=== PATIENT | female | born 1980 | race African-American/Black ===

== ENCOUNTER 2019-07-13 15:39 | Inpatient (IN) | payer OTHER ==
[~2019-07-13] VITALS: Ht 167.6 cm; Wt 93.4 kg
[2019-07-13] MEDS ORDERED: FUROSEMIDE 40 MG/4 ML VIAL IV ONE ×2 (16:30→19:30)
[2019-07-13] MEDS ORDERED: FUROSEMIDE 40 MG/4 ML VIAL ONE (16:30)
[2019-07-13] MEDS ORDERED: FURO40TA5 PO (17:03)
[2019-07-13] MEDS ORDERED: POTA20TA83 PO (17:03)
[2019-07-13 18:59] LABS: CALCIUM, SERUM 9.3 mg/dL (8.5-10.1); CARBON DIOXIDE 22 mmol/L (21-32); CHLORIDE 105 mmol/L (98-107); CREATININE 0.9 mg/dL (0.6-1.3); GLUCOSE 97 mg/dL (74-106); SODIUM SERUM 140 mmol/L (136-145); UREA NITROGEN, BLOOD 17 mg/dL (7-18)
[2019-07-13 19:00] LABS: BASOPHILS # (AUTO) 0.1 /CMM (0.0-0.2); BASOPHILS % (AUTO) 1.3 % (0.0-2.0); EOSINOPHILS % (AUTO) 1.8 % (0.0-6.0); HEMATOCRIT 39 % (33-45); HEMOGLOBIN 12.8 g/dL (11.5-14.8); LYMPHOCYTES # (AUTO) 1.4 /CMM (0.8-4.8); LYMPHOCYTES % (AUTO) 20.2 % (20.0-44.0); MEAN CORPUSCULAR HGB CONC 33 g/dl (31.0-36.0); MEAN CORPUSCULAR VOLUME 97 fL (82-100); MONOCYTES # (AUTO) 0.9 /CMM (0.1-1.30); MONOCYTES % (AUTO) 12.5 % (2.0-12.0); NEUTROPHILS # (AUTO) 4.6 /CMM (1.8-8.9); NEUTROPHILS % (AUTO) 64.2 % (43.0-81.0); PLATELET COUNT (AUTO) 258 /CMM (150-450); RED BLOOD CELL COUNT(AUTO) 4.02 MIL/uL (4.0-5.2); WHITE BLOOD COUNT (AUTO) 7.1 K/uL (4.3-11.0)
[2019-07-13 19:11] LABS: ALANINE AMINOTRANSFERASE 30 U/L (12-78); ALKALINE PHOSPHATASE 206 U/L (46-116); ASPARTATE AMINOTRANSFERASE 36 U/L (15-37); B-TYPE NATRIURETIC PEPTIDE 6514 PG/ML (0-125); BILIRUBIN,DIRECT 0.6 mg/dL (0.0-0.2); BILIRUBIN,TOTAL 1.4 mg/dL (0.2-1.0); TOTAL PROTEIN, SERUM 8.1 g/dL (6.4-8.2)
[2019-07-13] MEDS ORDERED: ALBUTEROL FS 2.5 MG/0.5 ML VIAL.NEB NEB PRN (19:30)
[2019-07-13] MEDS ORDERED: MAG HYDROX/AL HYDROX/SIMETH 30 ML UDC PO PRN (19:30)
[2019-07-13] MEDS ORDERED: HYDROCODONE/APAP 5/325MG 1 EACH TABLET PO PRN (19:30)
[2019-07-13] MEDS ORDERED: MAGNESIUM HYDROXIDE 30 ML UDC PO PRN (19:30)
[2019-07-13] MEDS ORDERED: ONDANSETRON HCL/PF 4 MG/2 ML VIAL IVP PRN (19:30)
[2019-07-13] MEDS ORDERED: Z GUARD REMEDY 2 OZ OINT TP PRN (19:30)
[2019-07-13 20:00] VITALS: BP 126/82
[2019-07-13] MEDS: ENOXAPARIN SODIUM 40 MG/0.4 ML DISP.SYRIN SQ SCH (20:29)
[2019-07-13 21:00] VITALS: BP 127/94
[2019-07-13 22:00] VITALS: BP 128/92
[2019-07-13 23:00] VITALS: BP 111/76
[2019-07-13 23:42] LABS: CALCIUM, SERUM 8.7 mg/dL (8.5-10.1); CREATININE 0.7 mg/dL (0.6-1.3); POTASSIUM 4.4 mmol/L (3.5-5.1)
[2019-07-14] VITALS (22 sets, daily range): BP systolic 95–147; BP diastolic 62–104
[2019-07-14 04:53] LABS: BASOPHILS # (AUTO) 0.1 /CMM (0.0-0.2); BASOPHILS % (AUTO) 0.8 % (0.0-2.0); EOSINOPHILS % (AUTO) 3.1 % (0.0-6.0); HEMATOCRIT 36 % (33-45); HEMOGLOBIN 11.6 g/dL (11.5-14.8); LYMPHOCYTES % (AUTO) 15.1 % (20.0-44.0); MEAN CORPUSCULAR HGB CONC 33 g/dl (31.0-36.0); MEAN CORPUSCULAR VOLUME 97 fL (82-100); MONOCYTES # (AUTO) 0.7 /CMM (0.1-1.30); MONOCYTES % (AUTO) 11.6 % (2.0-12.0); NEUTROPHILS # (AUTO) 4.4 /CMM (1.8-8.9); NEUTROPHILS % (AUTO) 69.4 % (43.0-81.0); PLATELET COUNT (AUTO) 308 /CMM (150-450); RED BLOOD CELL COUNT(AUTO) 3.67 MIL/uL (4.0-5.2); WHITE BLOOD COUNT (AUTO) 6.3 K/uL (4.3-11.0)
[2019-07-14 05:09] LABS: CALCIUM, SERUM 9.1 mg/dL (8.5-10.1); CREATININE 0.8 mg/dL (0.6-1.3); MAGNESIUM 1.8 mg/dL (1.8-2.4); PHOSPHORUS 4.5 mg/dL (2.5-4.9); POTASSIUM 3.7 mmol/L (3.5-5.1)
[2019-07-14 05:23] LABS: THYROID STIMULATING HORMONE 1.764 uIU/mL (0.358-3.74)
[2019-07-14] MEDS: POTASSIUM CHLORIDE 20 MEQ TAB.PRT.SR PO SCH ×3 (08:09→12:58)
[2019-07-14] MEDS: FUROSEMIDE 40 MG/4 ML VIAL IV SCH ×3 (08:09→16:31)
[2019-07-14] MEDS ORDERED: FUROSEMIDE 40 MG/4 ML VIAL IV SCH (09:00)
[2019-07-14] MEDS: MORPHINE SULFATE INJ 2 MG/ML DISP.SYRIN IV PRN ×2 (09:54→20:06)
[2019-07-14] MEDS: ENOXAPARIN SODIUM 40 MG/0.4 ML DISP.SYRIN SQ SCH (20:06)
[2019-07-15] VITALS: BP 116/71
[2019-07-15] MEDS: MORPHINE SULFATE INJ 2 MG/ML DISP.SYRIN IV PRN (01:04)
[2019-07-15 02:46] VITALS: BP 124/90
[2019-07-15 06:40] LABS: BASOPHILS % (AUTO) 0.6 % (0.0-2.0); HEMATOCRIT 35 % (33-45); HEMOGLOBIN 11.2 g/dL (11.5-14.8); LYMPHOCYTES % (AUTO) 14.6 % (20.0-44.0); MEAN CORPUSCULAR HGB CONC 32 g/dl (31.0-36.0); MEAN CORPUSCULAR VOLUME 96 fL (82-100); MONOCYTES # (AUTO) 0.7 /CMM (0.1-1.30); NEUTROPHILS # (AUTO) 4.8 /CMM (1.8-8.9); NEUTROPHILS % (AUTO) 71.8 % (43.0-81.0); PLATELET COUNT (AUTO) 292 /CMM (150-450); WHITE BLOOD COUNT (AUTO) 6.7 K/uL (4.3-11.0)
[2019-07-15 06:57] LABS: ALBUMIN 3.1 g/dL (3.4-5.0); BILIRUBIN,TOTAL 1.4 mg/dL (0.2-1.0); CREATININE 0.9 mg/dL (0.6-1.3); MAGNESIUM 1.7 mg/dL (1.8-2.4); PHOSPHORUS 4.3 mg/dL (2.5-4.9); POTASSIUM 3.6 mmol/L (3.5-5.1); TOTAL PROTEIN, SERUM 7.6 g/dL (6.4-8.2)
[2019-07-15] MEDS: Magnesium 1GM/D5W 100ML PREMIX 100 ML IV SCH ×2 (07:34→08:39)
[2019-07-15] MEDS: FUROSEMIDE 40 MG/4 ML VIAL IV SCH ×3 (07:34→15:30)
[2019-07-15] MEDS: POTASSIUM CHLORIDE 20 MEQ TAB.PRT.SR PO SCH ×3 (07:35→09:53)
[2019-07-15 08:00] VITALS: BP 125/71
[2019-07-15] MEDS ORDERED: Magnesium 1GM/D5W 100ML PREMIX 100 ML IV SCH (11:21)
[2019-07-15 16:00] VITALS: BP 128/82
[2019-07-15] MEDS ORDERED: FUROSEMIDE 40 MG/4 ML VIAL IV ONE (17:00)
[2019-07-15] MEDS: ENOXAPARIN SODIUM 40 MG/0.4 ML DISP.SYRIN SQ SCH (20:00)
[2019-07-15 20:46] VITALS: BP 128/82
[2019-07-16 06:28] LABS: BASOPHILS % (AUTO) 0.5 % (0.0-2.0); HEMATOCRIT 35 % (33-45); HEMOGLOBIN 11.7 g/dL (11.5-14.8); LYMPHOCYTES % (AUTO) 13.6 % (20.0-44.0); MEAN CORPUSCULAR HGB CONC 33 g/dl (31.0-36.0); MEAN CORPUSCULAR VOLUME 97 fL (82-100); MONOCYTES # (AUTO) 0.8 /CMM (0.1-1.30); MONOCYTES % (AUTO) 11.1 % (2.0-12.0); NEUTROPHILS # (AUTO) 5.1 /CMM (1.8-8.9); NEUTROPHILS % (AUTO) 71.8 % (43.0-81.0); PLATELET COUNT (AUTO) 299 /CMM (150-450); RED BLOOD CELL COUNT(AUTO) 3.67 MIL/uL (4.0-5.2); WHITE BLOOD COUNT (AUTO) 7.1 K/uL (4.3-11.0)
[2019-07-16 06:42] LABS: ALBUMIN 3.2 g/dL (3.4-5.0); BILIRUBIN,TOTAL 1.4 mg/dL (0.2-1.0); CALCIUM, SERUM 9.1 mg/dL (8.5-10.1); CREATININE 0.8 mg/dL (0.6-1.3); MAGNESIUM 1.9 mg/dL (1.8-2.4); PHOSPHORUS 3.7 mg/dL (2.5-4.9); POTASSIUM 3.7 mmol/L (3.5-5.1); TOTAL PROTEIN, SERUM 8.1 g/dL (6.4-8.2)
[2019-07-16 08:00] VITALS: BP 129/82
[2019-07-16] MEDS: ACETAMINOPHEN 325 MG TABLET PO PRN ×2 (08:39→18:58)
[2019-07-16] MEDS ORDERED: ALBUMIN 25% 12.5 GM/50 ML BOTTLE IV ONE (12:30)
[2019-07-16] MEDS ORDERED: ALBUMIN 25% 12.5 GM in PREMIX 1 EA IV ONE (13:00)
[2019-07-16 15:02] LABS: ABG BASE EXCESS 2.5 mmol/L; ABG PCO2 43.8 mmHg (35.0-45.0); ABG PH 7.415 (7.350-7.450); AaDO2 44.3 mmHg; COHb 0.5 % (0.5-1.5); MetHb 0.3 % (0.0-1.5); O2Hb 84.3 % (94.0-97.0); VENT MODE, BG ROOM AIR
[2019-07-16 16:00] VITALS: BP 110/68
[2019-07-16 20:00] VITALS: BP 114/76
[2019-07-16] MEDS: ENOXAPARIN SODIUM 40 MG/0.4 ML DISP.SYRIN SQ SCH (20:41)
[2019-07-17] VITALS: BP 105/82
[2019-07-17 04:00] VITALS: BP 108/70
[2019-07-17 07:32] LABS: BASOPHILS # (AUTO) 0.1 /CMM (0.0-0.2); BASOPHILS % (AUTO) 0.8 % (0.0-2.0); EOSINOPHILS % (AUTO) 2.8 % (0.0-6.0); HEMATOCRIT 37 % (33-45); HEMOGLOBIN 12.2 g/dL (11.5-14.8); LYMPHOCYTES # (AUTO) 1.1 /CMM (0.8-4.8); LYMPHOCYTES % (AUTO) 14.8 % (20.0-44.0); MEAN CORPUSCULAR HGB CONC 33 g/dl (31.0-36.0); MEAN CORPUSCULAR VOLUME 97 fL (82-100); MONOCYTES # (AUTO) 0.7 /CMM (0.1-1.30); MONOCYTES % (AUTO) 9.6 % (2.0-12.0); NEUTROPHILS # (AUTO) 5.3 /CMM (1.8-8.9); PLATELET COUNT (AUTO) 297 /CMM (150-450); RED BLOOD CELL COUNT(AUTO) 3.79 MIL/uL (4.0-5.2); WHITE BLOOD COUNT (AUTO) 7.3 K/uL (4.3-11.0)
[2019-07-17 08:00] VITALS: BP 122/76
[2019-07-17] MEDS: SPIRONOLACTONE 25 MG TABLET PO SCH (09:41)
[2019-07-17 09:44] LABS: CALCIUM, SERUM 8.5 mg/dL (8.5-10.1); CREATININE 0.9 mg/dL (0.6-1.3); MAGNESIUM 1.7 mg/dL (1.8-2.4); POTASSIUM 4.1 mmol/L (3.5-5.1)
[2019-07-17 16:00] VITALS: BP 105/60
[2019-07-17 20:00] VITALS: BP 109/76
[2019-07-17] MEDS: ENOXAPARIN SODIUM 40 MG/0.4 ML DISP.SYRIN SQ SCH (20:10)
[2019-07-17] MEDS: Magnesium 1GM/D5W 100ML PREMIX 100 ML IV SCH ×2 (20:11→21:29)
[2019-07-17 20:30] VITALS: BP 109/76
[2019-07-18 06:27] LABS: BASOPHILS % (AUTO) 0.8 % (0.0-2.0); EOSINOPHILS % (AUTO) 1.6 % (0.0-6.0); HEMATOCRIT 35 % (33-45); HEMOGLOBIN 11.5 g/dL (11.5-14.8); LYMPHOCYTES # (AUTO) 0.8 /CMM (0.8-4.8); LYMPHOCYTES % (AUTO) 13.5 % (20.0-44.0); MEAN CORPUSCULAR HGB CONC 33 g/dl (31.0-36.0); MEAN CORPUSCULAR VOLUME 97 fL (82-100); MONOCYTES # (AUTO) 0.5 /CMM (0.1-1.30); MONOCYTES % (AUTO) 8.8 % (2.0-12.0); NEUTROPHILS # (AUTO) 4.7 /CMM (1.8-8.9); NEUTROPHILS % (AUTO) 75.3 % (43.0-81.0); PLATELET COUNT (AUTO) 255 /CMM (150-450); RED BLOOD CELL COUNT(AUTO) 3.61 MIL/uL (4.0-5.2); WHITE BLOOD COUNT (AUTO) 6.2 K/uL (4.3-11.0)
[2019-07-18 06:51] LABS: CALCIUM, SERUM 8.5 mg/dL (8.5-10.1); CREATININE 0.7 mg/dL (0.6-1.3); MAGNESIUM 2.2 mg/dL (1.8-2.4); PHOSPHORUS 3.5 mg/dL (2.5-4.9); POTASSIUM 4.2 mmol/L (3.5-5.1)
[2019-07-18 08:00] VITALS: BP 113/62
[2019-07-18] MEDS: SPIRONOLACTONE 25 MG TABLET PO SCH (08:56)
[2019-07-18 16:00] VITALS: BP_SYST 107; BP_SYST 149; BP_DIAS 68; BP_DIAS 85
[2019-07-18 20:00] VITALS: BP 114/65
[2019-07-18] MEDS: ENOXAPARIN SODIUM 40 MG/0.4 ML DISP.SYRIN SQ SCH (21:45)
[2019-07-19 06:40] LABS: BASOPHILS # (AUTO) 0.1 /CMM (0.0-0.2); BASOPHILS % (AUTO) 1.7 % (0.0-2.0); HEMATOCRIT 36 % (33-45); HEMOGLOBIN 11.8 g/dL (11.5-14.8); LYMPHOCYTES # (AUTO) 1.2 /CMM (0.8-4.8); LYMPHOCYTES % (AUTO) 17.9 % (20.0-44.0); MEAN CORPUSCULAR HGB CONC 33 g/dl (31.0-36.0); MEAN CORPUSCULAR VOLUME 97 fL (82-100); MONOCYTES # (AUTO) 0.8 /CMM (0.1-1.30); MONOCYTES % (AUTO) 12.6 % (2.0-12.0); NEUTROPHILS # (AUTO) 4.2 /CMM (1.8-8.9); NEUTROPHILS % (AUTO) 64.8 % (43.0-81.0); PLATELET COUNT (AUTO) 263 /CMM (150-450); RED BLOOD CELL COUNT(AUTO) 3.72 MIL/uL (4.0-5.2); WHITE BLOOD COUNT (AUTO) 6.4 K/uL (4.3-11.0)
[2019-07-19 06:50] LABS: CALCIUM, SERUM 8.7 mg/dL (8.5-10.1); CREATININE 0.7 mg/dL (0.6-1.3); MAGNESIUM 1.9 mg/dL (1.8-2.4); PHOSPHORUS 4.3 mg/dL (2.5-4.9); POTASSIUM 4.2 mmol/L (3.5-5.1)
[2019-07-19 08:00] VITALS: BP 118/82
[2019-07-19 08:29] VITALS: BP 118/82
[2019-07-19] MEDS: SPIRONOLACTONE 25 MG TABLET PO SCH (08:29)
[2019-07-19] MEDS ORDERED: FUROSEMIDE 20 MG TABLET PO SCH (09:00)
[2019-07-19] MEDS ORDERED: LOSARTAN POTASSIUM 50 MG TABLET PO SCH (09:00)
[2019-07-19] MEDS ORDERED: SPIR25TA6 PO (09:56)
[2019-07-19] MEDS ORDERED: FURO20TA4 PO (09:56)
[2019-07-19] MEDS ORDERED: LOSA50TA3 PO (09:56)
== END 2019-07-19 10:00 | disposition home or self-care (01) | DRG 194 ==
LOC: ER 15:44 → ICU 18:02 → TELE 07-14 17:40 → MED 07-15 08:59
PROVIDERS: ADMIT Nurse Practitioner Acute Care; ATTEND Student in an Organized Health Care Education/Training Program
PROC: 0W9G3ZZ Drainage of Peritoneal Cavity, Percutaneous Approach (ICD-10-PCS; principal; 2019-07-13)
PROC: 05H933Z Insertion of Infusion Device into Right Brachial Vein, Percutaneous Approach (ICD-10-PCS; principal; 2019-07-13)
DX: I11.0 Hypertensive heart disease with heart failure (principal); J96.01 Acute respiratory failure with hypoxia; G92 Toxic encephalopathy; I27.20 Pulmonary hypertension, unspecified; I07.1 Rheumatic tricuspid insufficiency; E66.01 Morbid (severe) obesity due to excess calories; I50.23 Acute on chronic systolic (congestive) heart failure; I42.9 Cardiomyopathy, unspecified; R18.8 Other ascites; I25.10 Atherosclerotic heart disease of native coronary artery without angina pectoris; D64.9 Anemia, unspecified; E78.5 Hyperlipidemia, unspecified; F17.210 Nicotine dependence, cigarettes, uncomplicated; F19.90 Other psychoactive substance use, unspecified, uncomplicated; G47.33 Obstructive sleep apnea (adult) (pediatric); Z79.899 Other long term (current) drug therapy; Z95.1 Presence of aortocoronary bypass graft; Z95.2 Presence of prosthetic heart valve; Z95.0 Presence of cardiac pacemaker; I25.5 Ischemic cardiomyopathy; Z91.14 Patient's other noncompliance with medication regimen; J98.11 Atelectasis
CPT/HCPCS: 36410; 36415; 36600; 71045-TC; 71250-TC; 74018; 76700-TC; 76942-TC; 80048-TC; 80053-TC; 80061-TC; 80076-TC; 80305; 82140-TC; 83735-TC; 83880; 84100-TC; 84443-TC; 84484-TC; 84702-TC; 84703-TC; 85025-TC; 85610-TC; 87070-TC; 87081-TC; 88112-TC; 88305-TC; 88312-TC; 89051-TC; 93307-TC; 93970-TC; 94799-TC; 99082-TC; A4216; A9560; G0378; J1650; J1940; J2270; J3475; P9047

== ENCOUNTER 2019-10-31 16:39 | Inpatient (IN) | payer OTHER ==
[~2019-10-31] VITALS: Ht 162.6 cm; Wt 81.3 kg
[~2019-10-31 16:39] MED LIST: FURO20TA4 PO; FURO40TA5 PO; LOSA50TA3 PO; POTA20TA83 PO; SPIR25TA6 PO
--- NOTE | 2019-10-31 17:13 | NUR ---
MOVE SHEET SUBMITTED TO ADMITTING AND CALLED FOR JOHNNY BED.
[2019-10-31] MEDS ORDERED: LISI-607 PO (17:34)
[2019-10-31] MEDS ORDERED: BISO5TAB20 PO (17:34)
--- NOTE | 2019-10-31 17:35 | NUR ---
BIBA RA102 Fr Home "Abdominal Distention, swelling and Shortness of Breath. PT AAOX3, PT IN RESP DISTRESS, PT SEEN & EVAL'D BY DR. MAHARAJ. PLACED ON BIPAP, PT JAXON WELL, O2 SAT 100%. PLACED ON DRESS CAP MAKER, SR. WILL CONT TO MONITOR.
[2019-10-31 17:42] LABS: ABG BASE EXCESS -2.3 mmol/L; ABG OXYGEN SATURATION 94.9 % (92.0-98.5); ABG PO2 79.9 mmHg (75.0-100.0); AaDO2 598.1 mmHg; COHb 1.1 % (0.5-1.5); MetHb 0.1 % (0.0-1.5); O2Hb 93.8 % (94.0-97.0); SITE, ABG Left Radial; VENT MODE, BG bipap 15/5 100% psv 10
[2019-10-31 17:44] LABS: BASOPHILS # (AUTO) 0.1 /CMM (0.0-0.2); BASOPHILS % (AUTO) 1.3 % (0.0-2.0); EOSINOPHILS % (AUTO) 1.2 % (0.0-6.0); HEMATOCRIT 41 % (33-45); HEMOGLOBIN 13.3 g/dL (11.5-14.8); LYMPHOCYTES # (AUTO) 1.1 /CMM (0.8-4.8); LYMPHOCYTES % (AUTO) 14.9 % (20.0-44.0); MEAN CORPUSCULAR HGB CONC 33 g/dl (31.0-36.0); MEAN CORPUSCULAR VOLUME 101 fL (82-100); MONOCYTES # (AUTO) 0.6 /CMM (0.1-1.30); MONOCYTES % (AUTO) 8.1 % (2.0-12.0); NEUTROPHILS # (AUTO) 5.3 /CMM (1.8-8.9); NEUTROPHILS % (AUTO) 74.5 % (43.0-81.0); PLATELET COUNT (AUTO) 258 /CMM (150-450); RED BLOOD CELL COUNT(AUTO) 4.08 MIL/uL (4.0-5.2); WHITE BLOOD COUNT (AUTO) 7.1 K/uL (4.3-11.0)
[2019-10-31 17:55] LABS: CALCIUM, SERUM 9.5 mg/dL (8.5-10.1); CARBON DIOXIDE 21 mmol/L (21-32); CHLORIDE 101 mmol/L (98-107); CREATININE 1.4 mg/dL (0.6-1.3); GLUCOSE 111 mg/dL (74-106); SODIUM SERUM 135 mmol/L (136-145); UREA NITROGEN, BLOOD 39 mg/dL (7-18)
[2019-10-31 18:13] LABS: ALANINE AMINOTRANSFERASE 22 U/L (12-78); ALBUMIN 3.4 g/dL (3.4-5.0); ALKALINE PHOSPHATASE 223 U/L (46-116); ASPARTATE AMINOTRANSFERASE 42 U/L (15-37); B-TYPE NATRIURETIC PEPTIDE 6723 PG/ML (0-125); BILIRUBIN,DIRECT 1.9 mg/dL (0.0-0.2); BILIRUBIN,TOTAL 2.8 mg/dL (0.2-1.0); TOTAL PROTEIN, SERUM 9.1 g/dL (6.4-8.2)
--- NOTE | 2019-10-31 18:22 | NUR ---
EDILSON FLORES PAGEJasmina
[2019-10-31] MEDS ORDERED: CEFTRIAXONE 1 G in IV D5W 50 ML IV ONE (18:30)
[2019-10-31] MEDS ORDERED: Z GUARD REMEDY 2 OZ OINT TP PRN (19:00)
[2019-10-31] MEDS ORDERED: ACETAMINOPHEN 325 MG TABLET PO PRN (19:00)
[2019-10-31] MEDS ORDERED: MAGNESIUM HYDROXIDE 30 ML UDC PO PRN (19:00)
[2019-10-31] MEDS ORDERED: ONDANSETRON HCL/PF 4 MG/2 ML VIAL IVP PRN (19:00)
[2019-10-31] MEDS ORDERED: MAG HYDROX/AL HYDROX/SIMETH 30 ML UDC PO PRN (19:00)
[2019-10-31] MEDS ORDERED: ZOLPIDEM TARTRATE 5 MG TABLET PO PRN (19:00)
--- NOTE | 2019-10-31 19:00 | NUR ---
PT ASLEEP, EASILY AWAKEN BY VERBAL STIMULI. PT JAXNO BIPAP, NO RESP DISTRESS NOTED AT THIS TIME. WILL CONT TO MONITOR.
--- NOTE | 2019-10-31 19:40 | NUR ---
RT AT BEDSIDE TO WEAN OFF BIPAP
[2019-10-31 19:43] LABS: C-REACTIVE PROTEIN 2.8 mg/dL (0.0-0.9)
--- NOTE | 2019-10-31 19:44 | NUR ---
BED ASSIGNMENT 110
[2019-10-31] MEDS: AZITHROMYCIN 500 MG in IV D5W 250 ML IV ONE (19:51)
--- NOTE | 2019-10-31 20:00 | NUR ---
PER DR. MAHARAJ, PT NEEDS TO REMAIN ON BIPAP. INFORMED DR. FLORES AND MAYA SUP
--- NOTE | 2019-10-31 20:13 | NUR ---
RT NOTE Pt rec'd on bipap on noted settings as charted. alarms are set and audible. Bipap plugged into red outlet. Ambu bag bedside. Will continue to monitor closely. Addendum: 10/31/19 at 2015 by TRES NOEL RT Amended: Links added.
--- NOTE | 2019-10-31 20:26 | NUR ---
PT UPGRADED TO ICU 256
--- NOTE | 2019-10-31 21:42 | NUR ---
REPORT GIVEN TO ANKUR MARTINEZ FOR EMMANUEL.
--- NOTE | 2019-10-31 22:00 | NUR ---
Received patient in no acute distress from ER on [facility]. Patient able to transfer to bed, but has SOB. Patient able to catch breath after relaxing in bed. Patient is drowsy, but able to answer all question and is able to follow commands. Patient placed on telemetry with v pacing on the monitor. patient has external defibrillator that was removed to assess skin. Patient placed on Bipap by RT Disla and patient tolerating well. Skin check performed with no pressure injury noted. Right wrist iv infiltrated and patient yells in pain when flushed. New IV on Left Forearm placed by Ferny PASCUAL with good blood return and flushes well. bed in low lock position with rials up x 2. call light within reach and all safety measures ensured and carried out. will continue to monitor.
[2019-10-31 22:15] VITALS: BP 113/80
[2019-10-31] MEDS: FUROSEMIDE 40 MG/4 ML VIAL IV SCH (22:27)
[2019-10-31 23:45] VITALS: BP 110/84
[2019-11-01] VITALS (25 sets, daily range): BP systolic 91–162; BP diastolic 45–87
[2019-11-01 00:06] LABS: APPEARANCE,URINE CLEAR (CLEAR); BILIRUBIN,URINE NEGATIVE (NEGATIVE); BLOOD, URINE NEGATIVE Ery/uL (NEGATIVE); COLOR,URINE DARK YELLO (YELLOW); KETONES,URINE NEGATIVE (NEGATIVE); LEUKOCYTE ESTERASE ,URINE NEGATIVE (NEGATIVE); NITRITE, URINE NEGATIVE (NEGATIVE); PH,URINE 5.5 (5.0-8.0); PROTEIN,URINE NEGATIVE (NEGATIVE); UGLUCOSE NEGATIVE (NEGATIVE); UROBILINOGEN,URINE 0.2 EU/dL (0.2)
[2019-11-01] MEDS: ASPIRIN 81 MG TAB.CHEW PO SCH ×2 (00:17→08:09)
[2019-11-01 01:33] LABS: ABG BASE EXCESS -1.8 mmol/L; ABG PCO2 38.5 mmHg (35.0-45.0); ABG PH 7.391 (7.350-7.450); ABG PO2 94.6 mmHg (75.0-100.0); AaDO2 579.9 mmHg; COHb 0.9 % (0.5-1.5); MetHb 0.1 % (0.0-1.5); SITE, ABG Right Radial; VENT MODE, BG NRB
[2019-11-01 04:28] LABS: BASOPHILS # (AUTO) 0.1 /CMM (0.0-0.2); BASOPHILS % (AUTO) 1.1 % (0.0-2.0); EOSINOPHILS % (AUTO) 1.8 % (0.0-6.0); HEMATOCRIT 38 % (33-45); HEMOGLOBIN 12.5 g/dL (11.5-14.8); LYMPHOCYTES # (AUTO) 0.9 /CMM (0.8-4.8); LYMPHOCYTES % (AUTO) 12.2 % (20.0-44.0); MEAN CORPUSCULAR HGB CONC 33 g/dl (31.0-36.0); MEAN CORPUSCULAR VOLUME 100 fL (82-100); MONOCYTES # (AUTO) 0.5 /CMM (0.1-1.30); MONOCYTES % (AUTO) 6.1 % (2.0-12.0); NEUTROPHILS # (AUTO) 5.9 /CMM (1.8-8.9); NEUTROPHILS % (AUTO) 78.8 % (43.0-81.0); PLATELET COUNT (AUTO) 295 /CMM (150-450); RED BLOOD CELL COUNT(AUTO) 3.83 MIL/uL (4.0-5.2); WHITE BLOOD COUNT (AUTO) 7.5 K/uL (4.3-11.0)
[2019-11-01 05:38] LABS: CALCIUM, SERUM 9.2 mg/dL (8.5-10.1); CREATININE 1.3 mg/dL (0.6-1.3); MAGNESIUM 1.9 mg/dL (1.8-2.4); PHOSPHORUS 4.1 mg/dL (2.5-4.9); POTASSIUM 3.7 mmol/L (3.5-5.1)
[2019-11-01 05:49] LABS: THYROID STIMULATING HORMONE 1.632 uIU/mL (0.358-3.74)
[2019-11-01] MEDS: FUROSEMIDE 40 MG/4 ML VIAL IV SCH ×4 (08:09→18:00)
[2019-11-01] MEDS ORDERED: CEFTRIAXONE 1GM BAG (ER ONLY) 1 GM/50 ML PIGGYBACK IV SCH (09:00)
--- NOTE | 2019-11-01 09:44 | NUR ---
RN NOTE 0715: Received patient awake, A/Ox4. Noted with restlessness due to her breathing, verbalizing SOB. On 15LPM via NRB mask. Kept HOB elevated. On R/O Covid isolation, maintained and observed. VPacing 100's on the monitor. DISHA midline intact. Call light at reach, bed alarm on. Juares cath intact. Informed not to have much fluids. 0800: Made Dr. Granados aware about the patient. 0935: S/E by Dr. Foster. NO new order at this time. Lasix given, noted with good UOP, clear jewel colored urine.
[2019-11-01] MEDS: POTASSIUM CHLORIDE 20 MEQ TAB.PRT.SR PO SCH ×3 (10:37→11:47)
[2019-11-01] MEDS: LISINOPRIL (5MG) 5 MG TABLET PO SCH (10:45)
[2019-11-01] MEDS: ENOXAPARIN SODIUM 40 MG/0.4 ML DISP.SYRIN SQ SCH (11:52)
[2019-11-01] MEDS: CEFTRIAXONE 1 G in IV D5W 50 ML IV SCH (16:53)
--- NOTE | 2019-11-01 17:51 | NUR ---
RT NOTE PT RECEIVED ON NON-REBREATHER WITH A O2 SATURATION OF 95% HR 98. NO SOB NOTED Addendum: 11/01/19 at 1753 by ZAMZAM RODRIGUEZ RT Amended: Links added.
[2019-11-01] MEDS: AZITHROMYCIN 500 MG in IV D5W 250 ML IV SCH (18:00)
--- NOTE | 2019-11-01 18:29 | NUR ---
RN NOTE 96-97% O2 sat on 15LPM NRB mask. noted with 93%b at times. Kept on 15LPM NRB mask. DISHA midline intact. Lasix given as ordered. Noted with about 4500mL pale yellow urine.
[2019-11-01] MEDS: HYDROCODONE/APAP 5/325MG 1 EACH TABLET PO PRN (22:00)
--- NOTE | 2019-11-01 23:06 | NUR ---
Notified Cruz Pugh SENIOR IT RECRUITER that patient is c/o Pain to chest, back, and abdomen by screaming, grimacing, crying and guarding. Received orders to give Morphine 4mg IV q4h for severe pain. orders read back and carried out. will continue to monitor.
[2019-11-02] VITALS (19 sets, daily range): BP systolic 102–143; BP diastolic 47–87
[2019-11-02] MEDS: MORPHINE SULFATE INJ 4 MG/ML DISP.SYRIN IV PRN ×2 (00:37→22:14)
[2019-11-02 05:15] LABS: ALBUMIN 2.9 g/dL (3.4-5.0); BILIRUBIN,TOTAL 2.1 mg/dL (0.2-1.0); CALCIUM, SERUM 8.4 mg/dL (8.5-10.1); PHOSPHORUS 3.4 mg/dL (2.5-4.9); POTASSIUM 3.6 mmol/L (3.5-5.1); TOTAL PROTEIN, SERUM 7.7 g/dL (6.4-8.2)
[2019-11-02 05:26] LABS: BASOPHILS % (AUTO) 0.3 % (0.0-2.0); EOSINOPHILS % (AUTO) 2.9 % (0.0-6.0); HEMATOCRIT 35 % (33-45); HEMOGLOBIN 11.2 g/dL (11.5-14.8); LYMPHOCYTES # (AUTO) 0.8 /CMM (0.8-4.8); LYMPHOCYTES % (AUTO) 10.8 % (20.0-44.0); MEAN CORPUSCULAR HGB CONC 32 g/dl (31.0-36.0); MEAN CORPUSCULAR VOLUME 99 fL (82-100); MONOCYTES # (AUTO) 0.6 /CMM (0.1-1.30); MONOCYTES % (AUTO) 8.8 % (2.0-12.0); NEUTROPHILS # (AUTO) 5.5 /CMM (1.8-8.9); NEUTROPHILS % (AUTO) 77.2 % (43.0-81.0); PLATELET COUNT (AUTO) 279 /CMM (150-450); RED BLOOD CELL COUNT(AUTO) 3.54 MIL/uL (4.0-5.2); WHITE BLOOD COUNT (AUTO) 7.1 K/uL (4.3-11.0)
--- NOTE | 2019-11-02 06:27 | NUR ---
COVID TEST NEGATIVE
[2019-11-02] MEDS: ASPIRIN 81 MG TAB.CHEW PO SCH (08:24)
[2019-11-02] MEDS: LISINOPRIL (5MG) 5 MG TABLET PO SCH (08:25)
[2019-11-02] MEDS: FUROSEMIDE 40 MG/4 ML VIAL IV SCH ×4 (08:25→17:47)
--- NOTE | 2019-11-02 09:31 | NUR ---
RN NOTE 0715: Received patient awake, A/O x4. On 15LPM NRB. Eating, aware that she needs to keep mask on and remove only every bites. Juares cath intact, noted with jewel colored urine drained to BSD. Removed iso prec for Covid, tested negative, patient aware. 0900: Placed on 10LPM via simple mask, 93% sat, will continue to monitor. Will do Lasix rounds again today per cardio, patient aware.
[2019-11-02] MEDS: POTASSIUM CHLORIDE 20 MEQ TAB.PRT.SR PO SCH ×3 (09:56→11:24)
[2019-11-02] MEDS: ENOXAPARIN SODIUM 40 MG/0.4 ML DISP.SYRIN SQ SCH (11:36)
--- NOTE | 2019-11-02 16:23 | NUR ---
RN NOTE 1610: Transferred patient via bed, using ACLS protocl. No any significant changes noted at this time. Kept clean, warm and dry Needs attended. All belongings checked and with patient. Endorsed care to Mimi PASCUAL.
--- NOTE | 2019-11-02 16:40 | NUR ---
ms rn received a new transfer from [facility] ,awake,alert,oriented x3,not in any form of distress, respirations ,non labored, distended abdomen, denies pain at this time,all need attended.
[2019-11-02] MEDS: AZITHROMYCIN 500 MG in IV D5W 250 ML IV SCH (17:40)
[2019-11-02] MEDS: CEFTRIAXONE 1 G in IV D5W 50 ML IV SCH (17:40)
--- NOTE | 2019-11-02 19:00 | NUR ---
ms rn on bed, all needs attended.
--- NOTE | 2019-11-02 19:30 | NUR ---
MS/TELE/RN RECEIVED PATIENT ON BED AWAKE,ALERT, ORIENTED, COMFORTABLE, NO C/O PAIN,, NO DISTRESS NOTED, CALL LIGHT IN REACH. WILL MONITOR.
--- NOTE | 2019-11-02 23:18 | NUR ---
MS/TELE/RN PATIENT IS SLEEPING AT THIS TIME, APPEAR COMFORTABLLE, NO SIGNS OF DISTRESS NOTED, CALL LIGHT IN REACH, WILL MONITOR.
[2019-11-03] VITALS: BP 102/63
[2019-11-03 04:00] VITALS: BP 121/69
--- NOTE | 2019-11-03 06:25 | NUR ---
MS/TELE/RN PATIENT IS STILL SLEEPING, APPEAR COMFORTABLE, NO DISTRESS NOTED, CALL LIGHT IN REACH, ALL NEEDS ATTENDED AT THIS TIME, WILL CONTINUE TO MONITOR.
[2019-11-03 07:13] LABS: BASOPHILS % (AUTO) 0.7 % (0.0-2.0); EOSINOPHILS % (AUTO) 4.3 % (0.0-6.0); HEMATOCRIT 37 % (33-45); HEMOGLOBIN 11.7 g/dL (11.5-14.8); LYMPHOCYTES % (AUTO) 15.8 % (20.0-44.0); MEAN CORPUSCULAR HGB CONC 32 g/dl (31.0-36.0); MEAN CORPUSCULAR VOLUME 99 fL (82-100); MONOCYTES # (AUTO) 0.7 /CMM (0.1-1.30); MONOCYTES % (AUTO) 10.7 % (2.0-12.0); NEUTROPHILS # (AUTO) 4.3 /CMM (1.8-8.9); NEUTROPHILS % (AUTO) 68.5 % (43.0-81.0); PLATELET COUNT (AUTO) 287 /CMM (150-450); WHITE BLOOD COUNT (AUTO) 6.3 K/uL (4.3-11.0)
[2019-11-03 07:21] LABS: BILIRUBIN,TOTAL 2.3 mg/dL (0.2-1.0); CREATININE 0.8 mg/dL (0.6-1.3); MAGNESIUM 1.9 mg/dL (1.8-2.4); PHOSPHORUS 3.1 mg/dL (2.5-4.9); POTASSIUM 4.4 mmol/L (3.5-5.1); TOTAL PROTEIN, SERUM 8.2 g/dL (6.4-8.2)
--- NOTE | 2019-11-03 07:57 | NUR ---
PAYROLL BENEFITS CLERK OPENING NOTES RECEIVED PT ON BED, A/OX3, SHOUTING AND ANGRY DUE TO US ABD NOT DONE, ABD DISTENDED WITH ACTIVE BOWEL SOUNDS. CALLED US NO ANSWER AT THIS TIME, WILL CONT TO FF UP. PT HAS NO PRESENCE OF ACUTE RESPIRATORY DISTRESS, ON O2 AT 6LPM VIA N/C, JAXON WELL, HOB ELEVATED, PT REPOSITION TO SITTING POSITION, ON NPO STATUS ORDERED UNTIL AFTER ABD US. PT DENIES PAIN AND DISCOMFORT. SKIN WARM TO TOUCH AND DRY. ON TELE MONITOR SHOWS V PACE 99, LIFE VEST WITH PT, ON PACEMAKER. ON FC WITH CATHERINE TEA COLOR URINE. IV SITE AT LEFT FA #20 AND DISHA MIDLINE. BED IN LOW LOCKED POSITION, SR X2 UP FOR SAFETY, CALL LIGHT WITHIN REACH. WILL CONTINUE PLAN OF CARE.
[2019-11-03 08:22] VITALS: BP 96/67
[2019-11-03] MEDS: CARVEDILOL 3.125 MG TABLET PO SCH ×2 (09:18→20:49)
[2019-11-03] MEDS: LISINOPRIL (5MG) 5 MG TABLET PO SCH (09:18)
[2019-11-03] MEDS: FUROSEMIDE 40 MG TABLET PO SCH (09:19)
[2019-11-03] MEDS: ASPIRIN 81 MG TAB.CHEW PO SCH (09:19)
--- NOTE | 2019-11-03 09:19 | NUR ---
PUMPMAN NOTES BP RE-CHECKED 115/75 MM HG, HR 99 AT RIGHT UPPER ARM, LYING SUPINE ON BED, SEMI FOWLERS POSITION.
[2019-11-03] MEDS: ENOXAPARIN SODIUM 40 MG/0.4 ML DISP.SYRIN SQ SCH (11:39)
--- NOTE | 2019-11-03 14:05 | NUR ---
M/S RN NOTES PT SEEN AND EVALUATED BY DR. FLORES ASLEEP. PER MD TO DO US WITH PARACENTESIS TOMORROW ORDERED, WILL COORDINATE WITH US FOR THE PROCEDURE. WILL CONTINUE POC
--- NOTE | 2019-11-03 14:10 | NUR ---
M/S RN NOTES PER DR. FLORES TO TITRATE O2 TO 2LPM [employer] FOR DC PLANNING
[2019-11-03] MEDS: CEFTRIAXONE 1 G in IV D5W 50 ML IV SCH (16:01)
[2019-11-03 16:11] VITALS: BP 108/65
[2019-11-03] MEDS: AZITHROMYCIN 500 MG in IV D5W 250 ML IV SCH (17:13)
--- NOTE | 2019-11-03 17:40 | NUR ---
CHIDI PASCUAL NOTES PROVIDED BED BATH, LINEN CHANGE, MAGGIE HARDIN. Addendum: 11/03/19 at 1829 by SHAJI LEONARDO RN Bjorn VERDUZCO
--- NOTE | 2019-11-03 18:33 | NUR ---
M/S RN CLOSING NOTES PT A/OX3. ON O2 AT 4LPM VIA N/C SATING 94%, HOB ELEVATED, TO TITRATE TO 2LPM PER MD, NO PRESENCE OF ACUTE RESPIRATORY DISTRESS. PT DENIES PAIN AND DISCOMFORT. NO NEW OPEN SKIN BREAKDOWN, SKIN WARM TO TOUCH AND DRY. BM TODAY WITH BRP. ON FC WITH CATHERINE COLOR. LIFEVEST WITH PT. IV AT DISHA MIDLINE PATENT IN FLUSHING, CLEAN AND INTACT DRESSING. ALL CONCERNS ATTENDED, BED IN LOW LOCKED POSITION, SRX2 UP FOR SAFETY, CALL LIGHT WITHIN REACH. ENDORSED PT CARE TO NEXT SHIFT.
--- NOTE | 2019-11-03 19:28 | NUR ---
MS RN NOTES PATIENT IN BED, ASLEEP, ALERT AND ORIENTED X3. BREATHING EVEN AND UNLABORED ON 4L NC. SHOWS NO SIGNS OF ACUTE RESPIRATORY DISTRESS. NO ACUTE PAIN. FC CLEAN DRY AND INTACT. FLOWING CATHERINE URINE. IV ON DISHA MIDLINE SL. SHOWS NO SIGNS OF INFILTRATION, NO REDNESS. SAFETY PRECAUTIONS IN PLACE. BED IN LOWEST POSITION, LOCKED, AND CALL LIGHT KEPT WITHIN REACH. WILL CONTINUE TO MONITOR.
[2019-11-03 19:30] VITALS: BP 95/55
[2019-11-03 20:00] VITALS: BP 95/55
[2019-11-03] MEDS: HYDROCODONE/APAP 5/325MG 1 EACH TABLET PO PRN (20:49)
--- NOTE | 2019-11-03 20:49 | NUR ---
MS RN NOTES PATIENT REQUEST PAIN MEDICATIONS. GIVEN PRN NORCO AT 2048. WILL CONTINUE TO MONITOR.
--- NOTE | 2019-11-03 23:00 | NUR ---
MS RN NOTES PT'S LIFE VEST RAN OUT OF BATTERY, PRINT DESIGNER AT HOME AND NO ONE CAN DROP OFF TO THE HOSPITAL. CHARGE NURSE AWARE. PUT ON TELE MONITOR AND DEFIB PAD FOR MONITORING. WILL CONTINUE TO MONITOR.
[2019-11-04] VITALS: BP 104/71
[2019-11-04 04:00] VITALS: BP 108/60
[2019-11-04] MEDS: HYDROCODONE/APAP 5/325MG 1 EACH TABLET PO PRN ×2 (05:58→22:08)
--- NOTE | 2019-11-04 06:32 | NUR ---
MS RN NOTES PATIENT IN BED, ASLEEP, ALERT AND ORIENTED X3. BREATHING EVEN AND UNLABORED ON 4L NC. SHOWS NO SIGNS OF ACUTE RESPIRATORY DISTRESS. NO ACUTE PAIN. FC CLEAN DRY AND INTACT. FLOWING CATHERINE URINE. IV ON DISHA MIDLINE SL. SHOWS NO SIGNS OF INFILTRATION, NO REDNESS. ALL DUE MEDICATIONS GIVEN. SAFETY PRECAUTIONS IN PLACE. BED IN LOWEST POSITION, LOCKED, AND CALL LIGHT KEPT WITHIN REACH. WILL ENDORSE TO ONCOMING NURSE.
[2019-11-04 06:51] LABS: BASOPHILS % (AUTO) 0.6 % (0.0-2.0); EOSINOPHILS % (AUTO) 4.2 % (0.0-6.0); HEMATOCRIT 38 % (33-45); HEMOGLOBIN 12.2 g/dL (11.5-14.8); LYMPHOCYTES # (AUTO) 0.9 /CMM (0.8-4.8); LYMPHOCYTES % (AUTO) 13.7 % (20.0-44.0); MEAN CORPUSCULAR HGB CONC 32 g/dl (31.0-36.0); MEAN CORPUSCULAR VOLUME 99 fL (82-100); MONOCYTES # (AUTO) 0.6 /CMM (0.1-1.30); NEUTROPHILS % (AUTO) 72.5 % (43.0-81.0); PLATELET COUNT (AUTO) 291 /CMM (150-450); RED BLOOD CELL COUNT(AUTO) 3.82 MIL/uL (4.0-5.2); WHITE BLOOD COUNT (AUTO) 6.9 K/uL (4.3-11.0)
[2019-11-04 07:21] LABS: CALCIUM, SERUM 9.3 mg/dL (8.5-10.1); CREATININE 0.9 mg/dL (0.6-1.3); MAGNESIUM 2.2 mg/dL (1.8-2.4); PHOSPHORUS 3.5 mg/dL (2.5-4.9); POTASSIUM 4.4 mmol/L (3.5-5.1)
[2019-11-04 08:00] VITALS: BP 121/71
[2019-11-04] MEDS: ASPIRIN 81 MG TAB.CHEW PO SCH (09:00)
[2019-11-04] MEDS: FUROSEMIDE 40 MG TABLET PO SCH (09:00)
[2019-11-04] MEDS: LISINOPRIL (5MG) 5 MG TABLET PO SCH (09:00)
[2019-11-04] MEDS: CARVEDILOL 3.125 MG TABLET PO SCH ×2 (09:00→21:00)
--- NOTE | 2019-11-04 09:57 | NUR ---
MS RN NOTES HELD AM MEDS. PATIENT ON NPO. HAS SCHEDULED US GUIDED PARACENTESIS TODAY.
--- NOTE | 2019-11-04 10:37 | NUR ---
MS RN NOTES PATIENT CURRENTLY HAVING US GUIDED PARACENTESIS
--- NOTE | 2019-11-04 11:08 | NUR ---
MS RN NOTES CALLED [employer] [facility] [phone] TO HAVE PATIENT'S LIFE VEST CHECK AND SPOKE TO ADAMS. PER ADAMS, PATIENT IS PUT ON TOP OF LIST AND A REP WILL COME EITHER TODAY OR TOMORROW TO SEND A LONER.
[2019-11-04] MEDS: ENOXAPARIN SODIUM 40 MG/0.4 ML DISP.SYRIN SQ SCH (12:01)
--- NOTE | 2019-11-04 12:01 | NUR ---
MS RN NOTE PATIENT JAXON PARACENTESIS WELL. OUTPUT OF 7,125ML
[2019-11-04 16:00] VITALS: BP 128/85
[2019-11-04] MEDS ORDERED: AZITHROMYCIN 250 MG TABLET PO SCH (18:00)
--- NOTE | 2019-11-04 19:00 | NUR ---
MS RN NOTES PATIENT RESTING COMFORTABLY IN BED, HOB ELEVATED. ON O2 AT 2L/MIN VIA NC JAXON WELL WITH SPO2 AT 94%. REMAIN ON TELE MONITORING VPACIN NO S/S OF RESPIRATORY DISTRESS. DENIES ANY C/O PAIN NOR DISCOMFORT AST THIS TIME. S/P PARACENTESIS WITHOUT S/S OF COMPLICATIONS. BURT CATHETER INTACT AND PATENT DRAINING YELLOW COLORED URINE VIA BEDSIDE. RIGHT UPPER ARM MIDLINE INTACT AND PATENT. ABLE TO VERBALIZE NEEDS. BED IN LOWEST POSITION, LOCKED. CALL LIGHT WITHIN REACH. IN NO APPARENT DISTRESS.
--- NOTE | 2019-11-04 19:15 | NUR ---
SAFETY INVESTIGATOR NOTES PATIENT RECEIVED IN BED SLEEPING, EASILY AWAKEN BY NAME. ALERT AND ORIENTED X 3, ON NASAL CANNULA 2L, WITH NO RESPIRATORY DISTRESS AT THIS TIME, WITH EVEN NON-LABORED BREATHING, AND NO SOB NOTED. ON ACCOUNT RESOLUTION EXPERT, 90'S. PATIENT IV ACCESS INTACT AND PATENT ON RIGHT UPPER ARM, MIDLINE. DENIES PAIN AND DISCOMFORT AT THIS TIME, PROVIDED COMFORT MEASURES. SAFETY PRECAUTIONS IMPLEMENTED WITH BED LOCKED, BED IN LOWEST POSITION, BED ALARM ON, BILATERAL SIDE RAILS UP, AND CALL LIGHT WITHIN EASY REACH OF PATIENT. WILL CONTINUE TO MONITOR PATIENT.
[2019-11-04 20:00] VITALS: BP 100/64
--- NOTE | 2019-11-04 20:10 | NUR ---
SUPERVISOR PUMPING NOTES SPOKE WITH CELIA FROM [employer] [facility] , PER CELIA AUTO TRANSPORT DRIVER KALI WU CAME TO SEE THE PATIENT, AND LIFE VEST SUPPLIES AT PATIENT'S BEDSIDE WITH EXTRA BATTERY AND CROSSBAR FRAME WIRER. HELP PATIENT PUT ON LIFE VEST. WILL CONTINUE TO MONITOR PATIENT.
[2019-11-04 21:00] VITALS: BP 105/67
[2019-11-05] VITALS: BP_SYST 141; BP_DIAS 59; BP_DIAS 79
[2019-11-05 04:00] VITALS: BP 111/60
--- NOTE | 2019-11-05 06:45 | NUR ---
GROUP TESTER NOTES PATIENT IN BED SLEEPING, EASILY AWAKEN BY NAME. ON NASAL CANNULA 2L, WITH NO RESPIRATORY DISTRESS AT THIS TIME, WITH EVEN NON-LABORED BREATHING, AND NO SOB NOTED. LIFE VEST ON PATIENT. PATIENT IV ACCESS INTACT AND PATENT ON RIGHT UPPER ARM, MIDLINE. DENIES PAIN AND DISCOMFORT AT THIS TIME. MET ALL OF PATIENT'S NEEDS AND COMFORT MEASURES PROVIDED. SKIN KEPT CLEAN AND DRY. SAFETY PRECAUTIONS IMPLEMENTED WITH BED LOCKED, BILATERAL SIDE RAILS UP, BED IN THE LOWEST POSITION, AND CALL LIGHT WITHIN EASY REACH OF PATIENT. WILL ENDORSE PLAN OF CARE TO UPCOMING DAYSHIFT NURSE.
--- NOTE | 2019-11-05 07:15 | NUR ---
MS RN NOTES RECEIVED PATIENT ASLEEP IN BED. HOB ELEVATED. ON O2 AT 2L/MIN VIA NC JAXON WELL. NO S/S OF RESPIRATORY DISTRESS. DENIES ANY C/O PAIN NOR DISCOMFORT AST THIS TIME. BURT CATHETER INTACT AND PATENT DRAINING YELLOW COLORED URINE VIA BEDSIDE. RIGHT UPPER ARM MIDLINE INTACT AND PATENT. ABLE TO VERBALIZE NEEDS. BED IN LOWEST POSITION, LOCKED. CALL LIGHT WITHIN REACH.
[2019-11-05 08:00] VITALS: BP 120/92
[2019-11-05 08:37] LABS: BASOPHILS % (AUTO) 0.7 % (0.0-2.0); EOSINOPHILS % (AUTO) 4.1 % (0.0-6.0); HEMATOCRIT 40 % (33-45); LYMPHOCYTES # (AUTO) 1.2 /CMM (0.8-4.8); LYMPHOCYTES % (AUTO) 18.4 % (20.0-44.0); MEAN CORPUSCULAR HGB CONC 32 g/dl (31.0-36.0); MEAN CORPUSCULAR VOLUME 99 fL (82-100); MONOCYTES # (AUTO) 0.6 /CMM (0.1-1.30); MONOCYTES % (AUTO) 9.3 % (2.0-12.0); NEUTROPHILS # (AUTO) 4.3 /CMM (1.8-8.9); NEUTROPHILS % (AUTO) 67.5 % (43.0-81.0); PLATELET COUNT (AUTO) 300 /CMM (150-450); RED BLOOD CELL COUNT(AUTO) 4.07 MIL/uL (4.0-5.2); WHITE BLOOD COUNT (AUTO) 6.3 K/uL (4.3-11.0)
[2019-11-05 08:53] LABS: CALCIUM, SERUM 9.1 mg/dL (8.5-10.1); CREATININE 0.8 mg/dL (0.6-1.3); PHOSPHORUS 3.6 mg/dL (2.5-4.9); POTASSIUM 4.4 mmol/L (3.5-5.1)
[2019-11-05] MEDS: FUROSEMIDE 40 MG TABLET PO SCH (09:20)
[2019-11-05] MEDS: CARVEDILOL 3.125 MG TABLET PO SCH (09:20)
[2019-11-05] MEDS: ASPIRIN 81 MG TAB.CHEW PO SCH (09:20)
[2019-11-05 09:21] VITALS: BP 120/92
[2019-11-05] MEDS: LISINOPRIL (5MG) 5 MG TABLET PO SCH (09:21)
[2019-11-05 09:53] LABS: ABG BASE EXCESS 2.4 mmol/L; ABG OXYGEN SATURATION 90.2 % (92.0-98.5); ABG PO2 59.2 mmHg (75.0-100.0); COHb 0.9 % (0.5-1.5); MetHb 0.2 % (0.0-1.5); O2Hb 89.2 % (94.0-97.0); SITE, ABG Right Radial
[2019-11-05] MEDS: ENOXAPARIN SODIUM 40 MG/0.4 ML DISP.SYRIN SQ SCH (12:12)
--- NOTE | 2019-11-05 13:04 | NUR ---
MS RN NOTES MIDLINE DC'D WITH CATHETER TIP INTACT. BURT CATHETER DC'D JAXON WELL. PATIENT VOIDED.
[2019-11-05] MEDS ORDERED: ASPI-1169 PO (14:19)
--- NOTE | 2019-11-05 15:00 | NUR ---
MS RN NOTES ALERT AND ORIENTED X4. NO SOB. DENIES ANY C/O PAIN NOR DISCOMFORT AT THIS TIME. PATIENT FOR DISCHARGE. DISCHARGE PACKET, INSTRUCTIONS AND EDUCATION GIVEN TO PATIENT. ALL BELONGINGS ACCOUNTED FOR INCLUDING LIFEVEST SUPPLIES LONER. PER PATIENT SHE WILL CALL [employer] [facility] AND WILL FIND A PLACE TO RETURN LONER AND WILL FOLLOW UP TO GET HER LIFEVEST CHECKED. AMBULATORY WITH STEADY GAIT. PATIENT PICKED UP BY MOTHER AND LEFT IN STABLE CONDITION. NO S/S OF ACUTE DISTRESS.
== END 2019-11-05 15:00 | disposition home or self-care (01) | DRG 133 ==
LOC: ER 16:43 → TELE1 19:54 → ICU 20:27 → TELE 11-02 16:04 → MED 11-03 09:06 → TELE 11-04 11:31 → MED 11-05 05:39
PROVIDERS: ADMIT Student in an Organized Health Care Education/Training Program; ATTEND Nurse Practitioner Acute Care
PROC: 5A09357 Assistance with Respiratory Ventilation, Less than 24 Consecutive Hours, Continuous Positive Airway Pressure (ICD-10-PCS; principal; 2019-10-31)
PROC: B546ZZA Ultrasonography of Right Subclavian Vein, Guidance (ICD-10-PCS; 2019-11-01)
PROC: 05H533Z Insertion of Infusion Device into Right Subclavian Vein, Percutaneous Approach (ICD-10-PCS; 2019-11-01)
PROC: 0W9G3ZZ Drainage of Peritoneal Cavity, Percutaneous Approach (ICD-10-PCS; 2019-11-04)
DX: J96.21 Acute and chronic respiratory failure with hypoxia (principal); N17.0 Acute kidney failure with tubular necrosis; I21.A1 Myocardial infarction type 2; I50.43 Acute on chronic combined systolic (congestive) and diastolic (congestive) heart failure; I27.20 Pulmonary hypertension, unspecified; R18.8 Other ascites; E87.1 Hypo-osmolality and hyponatremia; I11.0 Hypertensive heart disease with heart failure; Z99.81 Dependence on supplemental oxygen; E11.9 Type 2 diabetes mellitus without complications; D64.9 Anemia, unspecified; E78.5 Hyperlipidemia, unspecified; I25.5 Ischemic cardiomyopathy; F17.200 Nicotine dependence, unspecified, uncomplicated; K74.60 Unspecified cirrhosis of liver; R74.0 Nonspecific elevation of levels of transaminase and lactic acid dehydrogenase [LDH]; Z95.2 Presence of prosthetic heart valve; I25.10 Atherosclerotic heart disease of native coronary artery without angina pectoris; Z95.1 Presence of aortocoronary bypass graft; F15.90 Other stimulant use, unspecified, uncomplicated; Z95.0 Presence of cardiac pacemaker
CPT/HCPCS: 36415; 36600; 71045-TC; 76700-TC; 76942-TC; 80048-TC; 80053-TC; 80061-TC; 80076-TC; 80305; 81000-TC; 82550-TC; 82728-TC; 82803-TC; 83605-TC; 83615-TC; 83735-TC; 83880; 84100-TC; 84443-TC; 84484-TC; 84702-TC; 85025-TC; 85378-TC; 85730-TC; 86140-TC; 87040-TC; 87081-TC; 87086-TC; 88108-TC; 88305-TC; 88312-TC; 89051-TC; 94799-TC; 99082-TC; G0378; J0456; J0696; J1650; J1940; J2270; J7050; J7060; U0003-CS